=== PATIENT | male | born 1965 | race Two or more races ===

== ENCOUNTER 2023-04-03 08:02 | Inpatient (IN) | payer MEDICAID ==
[~2023-04-03] VITALS: Ht 170.2 cm; Wt 60.0 kg
[2023-04-03 08:54] LABS: Basophils # (auto) 0.3 10 ^3/uL (0-0.2); Basophils % (auto) 4.8 % (0.0-2.0); Eosinophils # (auto) 0.3 10 ^3/uL (0-0.8); Eosinophils % (auto) 4.8 % (0.0-7.0); Hematocrit 39.8 % (41.0-53.0); Lymphocytes # (auto) 1.2 10 ^3/uL (0.4-5.4); Lymphocytes % (auto) 20.2 % (10.0-50.0); Mean Corpuscular Hemoglobin 33.3 pg (28.0-32.0); Mean Corpuscular Hgb Conc. 35.3 g/dL (32.0-36.0); Mean Corpuscular Volume 94.4 fL (80.0-100.0); Monocytes # (auto) 0.5 10 ^3/uL (0-1.3); Monocytes % (auto) 8.3 % (0.0-12.0); Neutrophils # (auto) 3.6 10 ^3/uL (1.6-8.6); Neutrophils % (auto) 61.9 % (37.0-80.0); Nucleated Red Blood Cells % 0.1 %; Red Blood Cells 4.22 10^6/uL (4.5-5.90); Red Cell Distribution Width 12.9 % (11.8-14.3); White Blood Cell 5.8 10^3/uL (4.4-10.8)
[2023-04-03 09:08] LABS: Albumin 3.8 g/dL (3.4-5.0); Calcium 8.7 mg/dL (8.5-10.1); Potassium 4.1 mmol/L (3.5-5.1)
[2023-04-03 09:13] LABS: BUN/Creatinine Ratio 16.2 (10.0-20.0); Bilirubin, Total 2.1 mg/dL (0.2-1.0); Total Protein 8.9 g/dL (6.4-8.2)
[2023-04-03] MEDS ORDERED: ACCU-CHEK COMFORT CURVE STRIP VI SCH (11:30)
[2023-04-03] MEDS ORDERED: DOCUSATE SOD 100 MG CAP PO PRN (11:30)
[2023-04-03] MEDS ORDERED: MORPHINE SULFATE INJ 2 MG/ml SYRG IV PRN (11:30)
[2023-04-03] MEDS ORDERED: SODIUM CHLORIDE 0.9% 1,000 ML IV SCH (11:30)
[2023-04-03] MEDS ORDERED: DEXTROSE (50%) 50ML SYRG IV PRN (11:30)
[2023-04-03] MEDS ORDERED: InsuLIN REG 1unit/0.01ml Soln (100units/ml) SC SCH (11:30)
[2023-04-03] MEDS ORDERED: ONDANSETRON HCL 4 MG/2 ML VIAL IV PRN (11:30)
[2023-04-03] MEDS ORDERED: SODIUM CHLORIDE 0.9% 1,000 ML IV ONE (11:45)
[2023-04-03 12:18] LABS: INR 1.19 (0.9-1.15)
[2023-04-03] MEDS ORDERED: ENOXAPARIN SOD 60 MG/0.6 ML SYRINGE SC SCH (12:21)
[2023-04-03] MEDS ORDERED: ENOXAPARIN SOD 40 MG/0.4 ML SYRINGE SC SCH (12:45)
[2023-04-03 14:29] VITALS: BP 105/67
[2023-04-03] MEDS ORDERED: ATORVASTATIN 20 MG TAB PO SCH (22:00)
[2023-04-04] MEDS ORDERED: ASPirin 81 mg TAB PO SCH (10:00)
[2023-04-04] MEDS ORDERED: LISINOPRIL 5 MG TAB PO SCH (10:00)
== END 2023-04-03 17:30 | disposition left against medical advice (07) | DRG 190 ==
LOC: ER 08:02 → TELE 11:27
PROVIDERS: ADMIT Nurse Practitioner Family; ATTEND Nurse Practitioner Family
DX: I21.4 Non-ST elevation (NSTEMI) myocardial infarction (principal); E87.1 Hypo-osmolality and hyponatremia; E11.9 Type 2 diabetes mellitus without complications; Z53.29 Procedure and treatment not carried out because of patient's decision for other reasons; R74.01 Elevation of levels of liver transaminase levels
CPT/HCPCS: 36415; 70450; 71045; 76705; 80053; 82962; 83036; 84484; 85025; 85379; 85610; 93005; 93886; G0378; J1815

== ENCOUNTER 2024-05-18 11:17 | Emergency (ER) | payer MEDICAID ==
[~2024-05-18] VITALS: Ht 157.5 cm; Wt 64.0 kg
[2024-05-18 11:54] LABS: Basophils # (auto) 0 10 ^3/uL (0-0.2); Basophils % (auto) 0.5 % (0.0-2.0); Eosinophils # (auto) 0 10 ^3/uL (0-0.8); Eosinophils % (auto) 0.2 % (0.0-7.0); Hematocrit 34.5 % (41.0-53.0); Hemoglobin 12.1 g/dL (13.5-17.5); Lymphocytes # (auto) 0.7 10 ^3/uL (0.4-5.4); Lymphocytes % (auto) 12.4 % (10.0-50.0); Mean Corpuscular Hemoglobin 33.9 pg (28.0-32.0); Mean Corpuscular Hgb Conc. 35.1 g/dL (32.0-36.0); Mean Corpuscular Volume 96.7 fL (80.0-100.0); Monocytes # (auto) 0.4 10 ^3/uL (0-1.3); Monocytes % (auto) 8.2 % (0.0-12.0); Neutrophils # (auto) 4.3 10 ^3/uL (1.6-8.6); Neutrophils % (auto) 78.7 % (37.0-80.0); Red Blood Cells 3.57 10^6/uL (4.5-5.90); Red Cell Distribution Width 12.7 % (11.8-14.3); White Blood Cell 5.5 10^3/uL (4.4-10.8)
[2024-05-18 12:07] LABS: Alanine Aminotransferase 83 U/L (7-40); Albumin 4.2 g/dL (3.2-4.8); Alkaline Phosphatase 173 U/L (46-116); Anion Gap 8 (5-15); Aspartate Aminotransferase 154 U/L (13-40); BUN/Creatinine Ratio 4.3 (10.0-20.0); Blood Urea Nitrogen 6 mg/dL (9-23); Calcium 9.1 mg/dL (8.7-10.4); Carbon Dioxide 23 mmol/L (20-30); Chloride 101 mmol/L (98-107); Glucose 122 mg/dL (74-106); Potassium 4.4 mmol/L (3.5-5.1); Sodium 132 mmol/L (136-145)
[2024-05-18 12:08] LABS: Bilirubin, Total 2.3 mg/dL (0.2-1.0); Total Protein 8.3 g/dL (5.7-8.2)
[2024-05-18] MEDS: SODIUM CHLORIDE 0.9% 2,000 ML IV ONE (12:37)
[2024-05-18] MEDS: ACETAMINOPHEN 325 MG TAB PO ONE (12:37)
[2024-05-18] MEDS: SUMAtriptan SUCCINATE 6 MG/0.5 ML VL SC ONE (12:37)
[2024-05-18] MEDS: MECLIZINE HCL 25 MG TAB PO ONE (12:37)
[2024-05-18 13:21] LABS: Urine Bacteria None Seen /hpf (None Seen)
[2024-05-18 13:51] LABS: Urine Blood Negative /uL (Negative); Urine Clarity Turbid (Clear); Urine Color Yellow (Yellow); Urine Hyaline Cast FEW /lpf (0 - 2); Urine Mucus FEW (None Seen); Urine Protein, UAD 1+ (Negative); Urine Specific Gravity 1.012 (1.001-1.035); Urine Urobilinogen 4 mg/dL (Negative); Urine WBC 4 /hpf (0 - 3)
[2024-05-18] MEDS ORDERED: MECL12.586 PO (15:26)
[2024-05-18 15:56] VITALS: BP 127/77; PULSE 87; RESP 18; TEMP 98.2; O2SAT 99
== END 2024-05-18 15:57 | disposition home or self-care (01) ==
LOC: EDBD 11:17 → EDUNIT# 11:17 → ER 11:17
DX: E86.0 Dehydration (principal); R42 Dizziness and giddiness; E11.9 Type 2 diabetes mellitus without complications
CPT/HCPCS: 36415; 70450; 80053; 81001; 83036; 85025; 93005; 96360; 96372; 99285; J3030; J7030; J8597